=== PATIENT | female | born 1955 | race Caucasian/White ===

== ENCOUNTER 2020-04-09 11:26 | Emergency (ER) | payer OTHER ==
--- NOTE | 2020-04-09 12:02 | EDM.PDOC ---
ED HPI GENERAL MEDICAL PROBLEM - General Chief Complaint: Gastrointestinal Problem Stated Complaint: INCOMING Time Seen by Provider: 04/09/20 11:35 Source of Information: Reports: Patient, EMS History Limitations: Reports: No Limitations - History of Present Illness INITIAL COMMENTS - FREE TEXT/NARRATIVE: Patient comes emergency department today by ambulance from home with concerns of generalized weakness. This patient was just released from the hospital on Tuesday from [place] with rectal bleeding weakness end-stage cirrhosis. She feels more weak and tired than she was when she left on Tuesday. She is more swollen. Feels like her abdomen is distended and she has quite a bit of fluid on her lower extremities. She continues to have bright red rectal bleeding at home wit h every bowel movement. She relates that she was told that she had internal hemorrhoids that was causing the bleeding. She has no chest pain. She has generalized weakness and near syncope when she stands up. No palpitations. No chest pain. No shortness of breath other than with physical exertion. No cough or congestion. No fever no chills. NO abd pain other than when she eats. She did have an Uppper EGD no bleeding from her varicies or colon done in [place] prior to hospitalization in [place] and found internal hemorrhoids while in [place] for the site of bleeding. Treatments [employer]: Reports: EKG, IV/IO Bilateral Lower Leg Pain Score (Numeric/FACES): 8 - Related Data Allergies Allergy/AdvReac Type Severity Reaction Status Date / Time codeine Allergy Anaphylactic Verified 04/09/20 11:59 Shock morphine Allergy Vomiting Verified 04/09/20 11:59 pork derived (porcine) Allergy Abdominal Verified 04/09/20 12:00 Pain Pork/Porcine Containing Allergy Abdominal Verified 04/09/20 12:00 Products Pain Sulfa (Sulfonamide Allergy Rash Verified 04/09/20 11:59 Antibiotics) Home Meds: Home Meds Bumetanide 1 mg PO DAILY 04/09/20 [History] Lactulose 20 ml PO TID 04/09/20 [History] Ondansetron [Zofran] 4 mg PO Q6H 04/09/20 [History] Rifaximin [Xifaxan] 550 mg PO BID 04/09/20 [History] Spironolactone [Aldactone] 200 mg PO DAILY 04/09/20 [History] oxyCODONE 5 mg PO Q6H 04/09/20 [History] ED ROS GENERAL - Review of Systems Review Of Systems: Comprehensive ROS is negative, except as noted in HPI. ED EXAM, NEURO - Physical Exam Exam: See Below Text/Narrative:: This is a pale ill-appearing female that has multiple areas of bruising excoriation on her extremities chest and back. She is quite edematous on her lower extremities as well as her upper extremities and she also has scleral edema. She appears in no acute distress. Exam Limited By: No Limitations General Appearance: Alert Eye Exam: Bilateral Eye: EOMI, Other (Scleral edema bilaterally) Ears: Normal External Exam Nose: Normal Inspection Throat/Mouth: Normal Inspection, Normal Lips Head Exam: Atraumatic, Normocephalic Neck: Normal Inspection, Supple Respiratory/Chest: No Respiratory Distress, Lungs Clear, Normal Breath Sounds, No Accessory Muscle Use Cardiovascular: Normal Peripheral Pulses, Regular Rate, Rhythm GI/Abdominal: Normal Bowel Sounds, Soft, Non-Tender, Distended. No: Guarding, Rigid, Rebound, Tender (Female) Exam: Deferred Rectal (Female) Exam: Deferred Neurological: Alert, Normal Mood/Affect, CN II-XII Intact Back Exam: Normal Inspection, Decreased Range of Motion Extremities: Normal Inspection, Normal Range of Motion, Normal Capillary Refill Psychiatric: Flat Affect Skin Exam: Dry, Intact, Cool, Pallor EKG INTERPRETATION EKG Date: 04/09/20 Time: 11:55 Rhythm: NSR Rate (Beats/Min): 74 [place]: Normal P-Wave: Present QRS: Normal ST-T: Normal QT: Normal Course - Vital Signs Last Recorded V/S: Last Vital Signs Temp 98.1 F 04/09/20 13:47 Pulse 75 04/09/20 13:47 Resp 20 04/09/20 13:47 BP 85/48 L 04/09/20 13:47 Pulse Ox 94 L 04/09/20 11:45 - Orders/Labs/Meds Orders: Active Orders 24 hr Category Date Time Status EKG Documentation Completion [RC] STAT Care 04/09/20 11:34 Active Verify Patient Consent Obtain [RC] ASDIRECTED Care 04/09/20 14:01 Active FRESH FROZEN PLASMA [BBK] Stat Lab 04/09/20 11:44 Results RED BLOOD CELLS LP [BBK] Stat Lab 04/09/20 11:44 Results TYPE AND SCREEN [BBK] Stat Lab 04/09/20 11:44 Results UA RFX RADHA AND CULT IF INDIC [URIN] Stat Lab 04/09/20 11:34 Ordered Octreotide [SandoSTATIN] 100 mcg Med 04/09/20 14:15 Active Sodium Chloride 0.9% [Normal Saline] 99 ml IV Q10H Transfuse Fresh Frozen Plasma [COMM] Stat Oth 04/09/20 13:39 Ordered Transfuse PRBC [Transfuse Red Blood Cells] [COMM] Stat Oth 04/09/20 11:54 Ordered Transfuse PRBC [Transfuse Red Blood Cells] [COMM] Stat Oth 04/09/20 13:41 Ordered Medication Orders Octreotide Acetate 100 mcg/ (Sodium Chloride) 100 mls @ 50 mls/hr IV Q10H CA Last Admin: 04/09/20 14:30 Dose: 50 mls/hr Documented by: MAGI Labs: Laboratory Tests 04/09/20 04/09/20 04/09/20 Range/Units 11:44 11:44 11:44 WBC 11.3 H (5.0-10.0) 10^3/uL RBC 1.75 L (4.2-5.4) 10^6/uL Hgb 5.8 L* (12.0-16.0) g/dL Hct 17.3 L* (37.0-47.0) % MCV 98.9 (80-100) fL MCH 33.1 (27.0-34.0) pg MCHC 33.5 (33.0-35.0) g/dL Plt Count 134 L (150-450) 10^3/uL Neut % (Auto) 75.1 (42.2-75.2) % Lymph % (Auto) 12.9 L (20.5-50.1) % [place] % (Auto) 11.2 H (2-8) % Eos % (Auto) 0.6 L (1.0-3.0) % Baso % (Auto) 0.2 (0.0-1.0) % PT 18.6 H (9.0-12.0) SEC INR 2.0 H (0.9-1.2) APTT 47.1 H (22.0-34.0) SEC Sodium 126 L (136-145) mmol/L Potassium 3.5 (3.5-5.1) mmol/L Chloride 95 L (98-107) mmol/L Carbon Dioxide 25 (21-32) mmol/L Anion Gap 9.5 (7-13) mEq/L BUN 21 H (7-18) mg/dL Creatinine 1.99 H (0.55-1.02) mg/dL Est Cr Clr Drug Dosing 28.50 mL/min Estimated GFR (MDRD) 25 BUN/Creatinine Ratio 10.6 (No establ ref range) Glucose 103 H (74-99) mg/dL Lactic Acid (0.4-2.0) mmol/L Calcium 7.4 L (8.5-10.1) mg/dL Magnesium 1.9 (1.8-2.4) mg/dL Total Bilirubin 2.1 H (0.2-1.0) mg/dL AST 70 H (15-37) U/L ALT 40 (14-59) U/L Alkaline Phosphatase 105 (46-116) U/L Ammonia (11-32) umol/L Troponin I 0.044 (0.000-0.056) ng/mL C-Reactive Protein < 0.2 (0.0-0.9) mg/dL Total Protein 3.1 L (6.4-8.2) g/dL Albumin 1.6 L (3.4-5.0) g/dL Globulin 1.5 Albumin/Globulin Ratio 1.07 Lipase 113 (73-393) U/L Blood Type Gel Antibody Screen Crossmatch 04/09/20 04/09/20 04/09/20 Range/Units 11:44 11:44 11:44 WBC (5.0-10.0) 10^3/uL RBC (4.2-5.4) 10^6/uL Hgb (12.0-16.0) g/dL Hct (37.0-47.0) % MCV (80-100) fL MCH (27.0-34.0) pg MCHC (33.0-35.0) g/dL Plt Count (150-450) 10^3/uL Neut % (Auto) (42.2-75.2) % Lymph % (Auto) (20.5-50.1) % [place] % (Auto) (2-8) % Eos % (Auto) (1.0-3.0) % Baso % (Auto) (0.0-1.0) % PT (9.0-12.0) SEC INR (0.9-1.2) APTT (22.0-34.0) SEC Sodium (136-145) mmol/L Potassium (3.5-5.1) mmol/L Chloride (98-107) mmol/L Carbon Dioxide (21-32) mmol/L Anion Gap (7-13) mEq/L BUN (7-18) mg/dL Creatinine (0.55-1.02) mg/dL Est Cr Clr Drug Dosing mL/min Estimated GFR (MDRD) BUN/Creatinine Ratio (No establ ref range) Glucose (74-99) mg/dL Lactic Acid 3.0 H* (0.4-2.0) mmol/L Calcium (8.5-10.1) mg/dL Magnesium (1.8-2.4) mg/dL Total Bilirubin (0.2-1.0) mg/dL AST (15-37) U/L ALT (14-59) U/L Alkaline Phosphatase (46-116) U/L Ammonia 15 (11-32) umol/L Troponin I (0.000-0.056) ng/mL C-Reactive Protein (0.0-0.9) mg/dL Total Protein (6.4-8.2) g/dL Albumin (3.4-5.0) g/dL Globulin Albumin/Globulin Ratio Lipase (73-393) U/L Blood Type O POSITIVE Gel Antibody Screen Negative Crossmatch See Detail 04/09/20 Range/Units 14:24 WBC (5.0-10.0) 10^3/uL RBC (4.2-5.4) 10^6/uL Hgb 6.2 L* (12.0-16.0) g/dL Hct 18.6 L* (37.0-47.0) % MCV (80-100) fL MCH (27.0-34.0) pg MCHC (33.0-35.0) g/dL Plt Count (150-450) 10^3/uL Neut % (Auto) (42.2-75.2) % Lymph % (Auto) (20.5-50.1) % [place] % (Auto) (2-8) % Eos % (Auto) (1.0-3.0) % Baso % (Auto) (0.0-1.0) % PT (9.0-12.0) SEC INR (0.9-1.2) APTT (22.0-34.0) SEC Sodium (136-145) mmol/L Potassium (3.5-5.1) mmol/L Chloride (98-107) mmol/L Carbon Dioxide (21-32) mmol/L Anion Gap (7-13) mEq/L BUN (7-18) mg/dL Creatinine (0.55-1.02) mg/dL Est Cr Clr Drug Dosing mL/min Estimated GFR (MDRD) BUN/Creatinine Ratio (No establ ref range) Glucose (74-99) mg/dL Lactic Acid (0.4-2.0) mmol/L Calcium (8.5-10.1) mg/dL Magnesium (1.8-2.4) mg/dL Total Bilirubin (0.2-1.0) mg/dL AST (15-37) U/L ALT (14-59) U/L Alkaline Phosphatase (46-116) U/L Ammonia (11-32) umol/L Troponin I (0.000-0.056) ng/mL C-Reactive Protein (0.0-0.9) mg/dL Total Protein (6.4-8.2) g/dL Albumin (3.4-5.0) g/dL Globulin Albumin/Globulin Ratio Lipase (73-393) U/L Blood Type Gel Antibody Screen Crossmatch Meds: Medications Generic Name Dose Route Start Last Admin Trade Name Freq PRN Reason Stop Dose Admin Octreotide Acetate 100 mcg/ 100 mls @ 50 mls/hr 04/09/20 14:15 04/09/20 14:30 Sodium Chloride IV 50 mls/hr Q10H CA Administration Discontinued Medications Generic Name Dose Route Start Last Admin Trade Name Freq PRN Reason Stop Dose Admin Ceftriaxone Sodium 1 gm/ 50 mls @ 100 mls/hr 04/09/20 14:08 04/09/20 14:29 Sodium Chloride IV 04/09/20 14:37 100 mls/hr ONETIME ONE Administration Octreotide Acetate 50 mcg 04/09/20 14:08 04/09/20 14:29 Sandostatin IVPUSH 04/09/20 14:09 50 mcg ONETIME ONE Administration - Radiology Interpretation Free Text/Narrative:: Chest x-ray per radiology shows generally poor inspiratory effort and dense platelike atelectasis in the left lower lobe. Normal cardiac silhouette. No pulmonary vascular congestion cephalization. No lung mass hilar lymphadenopathy or focal pneumonia. No hemo-pneumo heart failure lung mass or lobar pneumonia. Platelike atelectasis left lower lobe. - Re-Assessments/Exams Free Text/Narrative Re-Assessment/Exam: 04/09/20 13:46 Type and screen. Hgb 5.8 will transfuse 1 unit RBCs. INR 2.0 not on any anticoagulation. CXR with LLL atelectasis no pneumonia. I called and spoke with Dr. Lay at [facility] in [place]. HPI ER COURSE findings and concerns were relayed to him. He accepted the patient in transfer at this time and also add a unit of FFP and another unit of PRBCs prior to transfer. Also give a dose of ceftriaxone for SBP prophylaxis and also start octreotide gtt and bolus. He would also like the patient flown to [place] due to the active bleeding coagulopathy labile blood pressure and that our ambulances are quite backed up and wont be transfered for a while. I discussed the plan of care with the patient she is comfortable with this plan and her questions answered. 04/09/20 14:42 Departure - Departure Time of Disposition: 13:15 Disposition: DC/Tfer to [facility] Clinical Impression: Rectal bleeding, Coagulopathy, Atelectasis Cirrhosis of liver Qualifiers: Hepatic cirrhosis type: unspecified hepatic cirrhosis Ascites presence: unspecified Qualified Code(s): K74.60 - Unspecified cirrhosis of liver Anemia Qualifiers: Anemia type: unspecified type Qualified Code(s): D64.9 - Anemia, unspecified - Discharge Information Referrals: Caroline Gonsales NP [Primary Care Provider] - Forms: ED Department Discharge, Interfacility Transfer [facility] Sepsis Event Note (ED) - Focused Exam Vital Signs: Vital Signs Temp Temp Pulse Resp BP Pulse Ox 04/09/20 13:47 98.1 F 75 20 85/48 L 04/09/20 11:45 98.2 F 74 20 90/49 L 94 L - My Orders Last 24 Hours: My Active Orders 04/09/20 11:34 EKG Documentation Completion [RC] STAT UA RFX RADHA AND CULT IF INDIC [URIN] Stat 04/09/20 11:44 FRESH FROZEN PLASMA [BBK] Stat RED BLOOD CELLS LP [BBK] Stat TYPE AND SCREEN [BBK] Stat 04/09/20 11:54 Transfuse PRBC [Transfuse Red Blood Cells] [COMM] Stat 04/09/20 13:39 Transfuse Fresh Frozen Plasma [COMM] Stat 04/09/20 13:41 Transfuse PRBC [Transfuse Red Blood Cells] [COMM] Stat 04/09/20 14:01 Verify Patient Consent Obtain [RC] ASDIRECTED 04/09/20 14:15 Octreotide [SandoSTATIN] 100 mcg Sodium Chloride 0.9% [Normal Saline] 99 ml IV Q10H - Assessment/Plan Last 24 Hours: My Active Orders 04/09/20 11:34 EKG Documentation Completion [RC] STAT UA RFX RADHA AND CULT IF INDIC [URIN] Stat 04/09/20 11:44 FRESH FROZEN PLASMA [BBK] Stat RED BLOOD CELLS LP [BBK] Stat TYPE AND SCREEN [BBK] Stat 04/09/20 11:54 Transfuse PRBC [Transfuse Red Blood Cells] [COMM] Stat 04/09/20 13:39 Transfuse Fresh Frozen Plasma [COMM] Stat 04/09/20 13:41 Transfuse PRBC [Transfuse Red Blood Cells] [COMM] Stat 04/09/20 14:01 Verify Patient Consent Obtain [RC] ASDIRECTED 04/09/20 14:15 Octreotide [SandoSTATIN] 100 mcg Sodium Chloride 0.9% [Normal Saline] 99 ml IV Q10H
[2020-04-09 12:08] LABS: PTT,PARTIAL THROMBOPLSTIN TIME 47.1 SEC (22.0-34.0)
[2020-04-09 12:14] LABS: ANION GAP 9.5 mEq/L (7-13); CHLORIDE,CL 95 mmol/L (98-107); SODIUM,NA 126 mmol/L (136-145)
--- NOTE | 2020-04-09 12:38 | CR ---
EXAMINATION: Chest 1V Frontal SEX: Female AGE: 64 years CLINICAL HISTORY: 64-year-old female clinical weakness. No comparison exams. INTERPRETATION: Abnormal. 1. Generally poor inspiratory effort and dense platelike ATELECTASIS, left lower lobe. 2. Normal cardiac silhouette. No pulmonary vascular congestion, cephalization of flow, alveolar edema or dependent pleural effusion. (External cardiac nurse specialist leads) 3. No lung mass, hilar lymphadenopathy or focal lobar pneumonia. 4. No pneumothorax or pneumomediastinum. Midline tracheal bronchial airway unremarkable. 5. CONCLUSION: No signs of heart failure lung mass or lobar pneumonia. Platelike atelectasis LLL. CONCLUSION:
[2020-04-09] MEDS ORDERED: Octreotide 100 MCG/ML SDV IVPUSH ONE (14:08)
[2020-04-09] MEDS ORDERED: cefTRIAXone 1 GM in Sodium Chloride 0.9% 50 ML IV ONE (14:08)
[2020-04-09] MEDS ORDERED: Octreotide 100 MCG in Sodium Chloride 0.9% 99 ML IV SCH (14:15)
== END 2020-04-09 15:15 ==
LOC: DL.ED 11:26
DX: K74.60 Unspecified cirrhosis of liver (principal); K62.5 Hemorrhage of anus and rectum; D64.9 Anemia, unspecified; J98.11 Atelectasis; D68.9 Coagulation defect, unspecified; Z88.5 Allergy status to narcotic agent; Z88.2 Allergy status to sulfonamides; Z91.018 Allergy to other foods; Z79.899 Other long term (current) drug therapy
CPT/HCPCS: 36415; 36430; 71045; 80053; 81001; 82140; 83605; 83690; 83735; 84484; 85014; 85018; 85025; 85610; 85730; 86140; 86850; 86900; 86901; 86920; 86922; 93005; 96365; 96368; 99285; J0696; J2354; J7050; P9016; P9017